=== PATIENT | male | born 1950 | race Caucasian/White ===

== ENCOUNTER 2016-04-06 15:06 | Outpatient (RCR) | payer MEDICARE, MEDICAID, OTHER | END 2016-04-28 | disposition home or self-care (01) | LOC: WCC 15:06 | DX: L98.492 Non-pressure chronic ulcer of skin of other sites with fat layer exposed (principal); L59.9 Disorder of the skin and subcutaneous tissue related to radiation, unspecified; W88.8XXS Exposure to other ionizing radiation, sequela; Z88.2 Allergy status to sulfonamides; L98.421 Non-pressure chronic ulcer of back limited to breakdown of skin | CPT/HCPCS: 11042; G0277 ==

== ENCOUNTER 2016-05-04 14:30 | Outpatient (RCR) | payer MEDICARE, OTHER, MEDICAID ==
[~2016-05-04] VITALS: Ht 170.2 cm; Wt 60.8 kg
[2016-05-08] MEDS ORDERED: Lidocaine 2% MPF 5ml Vial INJ ONE (14:00)
[2016-05-08] MEDS ORDERED: Hydrocortisone 1% Cr 15gm TOPIC ONE (14:00)
== END 2016-05-26 | disposition home or self-care (01) ==
LOC: WCC 14:30
DX: L59.9 Disorder of the skin and subcutaneous tissue related to radiation, unspecified (principal); L98.492 Non-pressure chronic ulcer of skin of other sites with fat layer exposed; L98.421 Non-pressure chronic ulcer of back limited to breakdown of skin; W88.8XXS Exposure to other ionizing radiation, sequela; Z88.2 Allergy status to sulfonamides
CPT/HCPCS: G0277; G0463